=== PATIENT | female | born 1960 | race Caucasian/White ===

== ENCOUNTER 2021-10-22 09:24 | Outpatient (CLI) | payer BC | END 2021-10-22 09:25 | disposition home or self-care (01) | LOC: CSHULT 09:24 | PROVIDERS: ATTEND Otolaryngology Plastic Surgery within the Head & Neck | DX: E04.1 Nontoxic single thyroid nodule (principal); E04.2 Nontoxic multinodular goiter | CPT/HCPCS: 76536 ==

== ENCOUNTER 2023-12-25 09:28 | Outpatient (CLI) | payer BC | END 2023-12-25 09:29 | disposition home or self-care (01) | LOC: CSHMAMMO 09:28 | PROVIDERS: ATTEND Obstetrics & Gynecology | DX: Z12.31 Encounter for screening mammogram for malignant neoplasm of breast (principal); Z80.3 Family history of malignant neoplasm of breast | CPT/HCPCS: 77063; 77067 ==

== ENCOUNTER 2024-01-15 13:14 | Outpatient (CLI) | payer BC | END 2024-01-15 13:15 | disposition home or self-care (01) | LOC: CSHULT 13:14 | PROVIDERS: ATTEND Otolaryngology Plastic Surgery within the Head & Neck | DX: E04.1 Nontoxic single thyroid nodule (principal) | CPT/HCPCS: 76536 ==

== ENCOUNTER 2024-03-23 14:52 | Outpatient (CLI) | payer BC | END 2024-03-23 14:53 | disposition home or self-care (01) | LOC: CSHMAMMO 14:52 | PROVIDERS: ATTEND Obstetrics & Gynecology | DX: M85.851 Other specified disorders of bone density and structure, right thigh (principal); M85.852 Other specified disorders of bone density and structure, left thigh; M81.0 Age-related osteoporosis without current pathological fracture; Z78.0 Asymptomatic menopausal state | CPT/HCPCS: 77080 ==

== ENCOUNTER 2025-08-17 13:17 | Outpatient (CLI) | payer BC | END 2025-08-17 13:18 | disposition home or self-care (01) | LOC: CSHMAMMO 13:17 | PROVIDERS: ATTEND Obstetrics & Gynecology | DX: Z12.31 Encounter for screening mammogram for malignant neoplasm of breast (principal); Z80.3 Family history of malignant neoplasm of breast | CPT/HCPCS: 77063; 77067 ==